=== PATIENT | male | born 1940 | race Two or more races ===

== ENCOUNTER 2021-12-04 16:58 | Inpatient (IN) | payer OTHER, MEDICAID ==
[~2021-12-04] VITALS: Ht 167.6 cm; Wt 75.9 kg
[~2021-12-04 16:58] MED LIST: ACE325RS; AMLO-489; CELE100C82; CLIN150C8; TRAM50TA2
[2021-12-04] MEDS ORDERED: methylPREDNISolone SOD SUCC 125 MG/2 ML VL IV ONE (18:00)
[2021-12-04] MEDS ORDERED: AZITHROMYCIN 500MG/ 250ML 250 ML IV ONE (18:00)
[2021-12-04 20:03] LABS: Basophils # (auto) 0 10 ^3/uL (0-0.2); Basophils % (auto) 0.1 % (0.0-2.0); Eosinophils # (auto) 0 10 ^3/uL (0-0.8); Hematocrit 39.3 % (41.0-53.0); Hemoglobin 12.8 g/dL (13.5-17.5); Lymphocytes # (auto) 0.8 10 ^3/uL (0.4-5.4); Lymphocytes % (auto) 8.5 % (10.0-50.0); Mean Corpuscular Hemoglobin 29.6 pg (28.0-32.0); Mean Corpuscular Hgb Conc. 32.5 g/dL (32.0-36.0); Mean Corpuscular Volume 91.1 fL (80.0-100.0); Monocytes # (auto) 0.5 10 ^3/uL (0-1.3); Monocytes % (auto) 5.1 % (0.0-12.0); Neutrophils # (auto) 7.6 10 ^3/uL (1.6-8.6); Neutrophils % (auto) 86.3 % (37.0-80.0); Red Blood Cells 4.31 10^6/uL (4.5-5.90); Red Cell Distribution Width 14.7 % (11.8-14.3); White Blood Cell 8.9 10^3/uL (4.4-10.8)
[2021-12-04 20:19] LABS: Albumin 2.5 g/dL (3.4-5.0); Calcium 8.1 mg/dL (8.5-10.1); Potassium 4.1 mmol/L (3.5-5.1)
[2021-12-04 20:23] LABS: Lactic Acid w/Reflex 5.8 mmol/L (0.4-2.0)
[2021-12-04 20:25] LABS: BUN/Creatinine Ratio 15.2; Bilirubin, Total 0.5 mg/dL (0.2-1.0)
[2021-12-04] MEDS ORDERED: REMDESIVIR PER PHARMACY 0 ML IV SCH ×2 (21:15→21:45)
[2021-12-04] MEDS ORDERED: TEMAZEPAM 15 MG CAP PO PRN (21:45)
[2021-12-04] MEDS ORDERED: FUROSEMIDE 40 MG/4 ML VIAL IV ONE (21:45)
[2021-12-04] MEDS ORDERED: ACETAMINOPHEN 500 MG TAB PO PRN (21:45)
[2021-12-04] MEDS ORDERED: MORPHINE SULFATE INJECTION 2 MG/ML SYRG IV PRN (21:45)
[2021-12-04] MEDS ORDERED: NITROGLYCERIN 0.4 MG SL TAB SL PRN (21:45)
[2021-12-04] MEDS ORDERED: cefTRIAXone 1GM/50ML D5W 50 ML IV ONE (21:45)
[2021-12-04] MEDS ORDERED: ONDANSETRON HCL 4 MG/2 ML VIAL IV PRN (21:45)
[2021-12-04] MEDS ORDERED: ENOXAPARIN SOD 60 MG/0.6 ML SYRINGE SC ONE (22:00)
[2021-12-04] MEDS: BUDESONIDE (INHALATION) 180 MCG IH IN SCH (22:41)
[2021-12-04] MEDS: ALBUTEROL SULF HFA 90MCG INH 200DOSE IN PRN (22:41)
[2021-12-05] MEDS: ATORVASTATIN 20 MG TAB PO SCH ×2 (00:40→22:05)
[2021-12-05 04:03] LABS: Urine WBC None Seen /hpf (0 - 3)
[2021-12-05 04:11] LABS: Urine Bacteria NONE SEEN /hpf (None Seen); Urine Blood Negative /uL (Negative); Urine Hyaline Cast FEW /lpf (0 - 2); Urine Specific Gravity 1.011 (1.001-1.035)
[2021-12-05] MEDS: BUDESONIDE (INHALATION) 180 MCG IH IN SCH ×2 (06:25→22:00)
[2021-12-05] MEDS: ALBUTEROL SULF HFA 90MCG INH 200DOSE IN PRN (06:26)
[2021-12-05] MEDS: DexAMETHasone SOD PHOS 10MG/1ML VIAL INJ IV SCH (09:37)
[2021-12-05] MEDS: cefTRIAXone 1GM/50ML D5W 50 ML IV SCH (09:37)
[2021-12-05] MEDS: AZITHROMYCIN 500MG/ 250ML 250 ML IV SCH (09:37)
[2021-12-05] MEDS: ZINC SULFATE 220mg CAP or TAB PO SCH (09:38)
[2021-12-05] MEDS: PANTOPRAZOLE 40 MG TAB PO SCH (09:44)
[2021-12-05] MEDS: CHOLECALCIFEROL (VITD3) 2,000 UNIT CAP/TAB PO SCH (09:44)
[2021-12-05] MEDS: ASCORBIC ACID 1,000 MG TAB PO SCH (09:44)
[2021-12-05] MEDS ORDERED: ASPirin 81 mg TAB PO SCH (10:00)
[2021-12-05] MEDS ORDERED: FUROSEMIDE 40 MG TAB PO SCH (10:00)
[2021-12-05] MEDS ORDERED: ENOXAPARIN SOD 40 MG/0.4 ML SYRINGE SC SCH (10:00)
[2021-12-05 10:03] LABS: Basophils # (auto) 0 10 ^3/uL (0-0.2); Basophils % (auto) 0.2 % (0.0-2.0); Eosinophils # (auto) 0 10 ^3/uL (0-0.8); Hematocrit 39.9 % (41.0-53.0); Hemoglobin 13.4 g/dL (13.5-17.5); Lymphocytes # (auto) 0.8 10 ^3/uL (0.4-5.4); Lymphocytes % (auto) 9.4 % (10.0-50.0); Mean Corpuscular Hgb Conc. 33.5 g/dL (32.0-36.0); Mean Corpuscular Volume 89.7 fL (80.0-100.0); Monocytes # (auto) 0.2 10 ^3/uL (0-1.3); Monocytes % (auto) 2.7 % (0.0-12.0); Neutrophils # (auto) 7.2 10 ^3/uL (1.6-8.6); Neutrophils % (auto) 87.7 % (37.0-80.0); Nucleated Red Blood Cells % 0.1 %; Red Blood Cells 4.45 10^6/uL (4.5-5.90); Red Cell Distribution Width 14.7 % (11.8-14.3); White Blood Cell 8.2 10^3/uL (4.4-10.8)
[2021-12-05 10:08] LABS: Albumin 2.5 g/dL (3.4-5.0); Calcium 8.7 mg/dL (8.5-10.1); Potassium 3.5 mmol/L (3.5-5.1)
[2021-12-05 10:11] LABS: BUN/Creatinine Ratio 22.1; Bilirubin, Total 0.5 mg/dL (0.2-1.0); Total Protein 7.3 g/dL (6.4-8.2)
[2021-12-05] MEDS ORDERED: REMDESIVIR 200 MG in NS 210ml LOADING DOSE ADULT IV ONE (20:00)
[2021-12-06] VITALS (7 sets, daily range): BP systolic 99–143; BP diastolic 61–79
[2021-12-06 06:39] LABS: Potassium 3.6 mmol/L (3.5-5.1)
[2021-12-06 06:44] LABS: Albumin 2.4 g/dL (3.4-5.0); BUN/Creatinine Ratio 26.9; Calcium 8.7 mg/dL (8.5-10.1)
[2021-12-06 06:46] LABS: Lactic Acid w/Reflex 2.8 mmol/L (0.4-2.0)
[2021-12-06 06:47] LABS: Bilirubin, Total 0.4 mg/dL (0.2-1.0); Total Protein 6.6 g/dL (6.4-8.2)
[2021-12-06] MEDS: cefTRIAXone 1GM/50ML D5W 50 ML IV SCH (09:26)
[2021-12-06] MEDS: ASPirin 81 mg TAB PO SCH (09:26)
[2021-12-06] MEDS: ZINC SULFATE 220mg CAP or TAB PO SCH (09:26)
[2021-12-06] MEDS: DexAMETHasone SOD PHOS 10MG/1ML VIAL INJ IV SCH (09:26)
[2021-12-06] MEDS: CHOLECALCIFEROL (VITD3) 2,000 UNIT CAP/TAB PO SCH (09:27)
[2021-12-06] MEDS: PANTOPRAZOLE 40 MG TAB PO SCH (09:27)
[2021-12-06] MEDS: ENOXAPARIN SOD 60 MG/0.6 ML SYRINGE SC SCH (09:27)
[2021-12-06] MEDS: ASCORBIC ACID 1,000 MG TAB PO SCH (09:27)
[2021-12-06] MEDS: REMDESIVIR PER PHARMACY 0 ML IV SCH (10:00)
[2021-12-06] MEDS ORDERED: FUROSEMIDE 20 MG/2 ML VIAL IV SCH (10:00)
[2021-12-06] MEDS: BUDESONIDE (INHALATION) 180 MCG IH IN SCH ×2 (10:25→19:05)
[2021-12-06] MEDS: AZITHROMYCIN 500MG/ 250ML 250 ML IV SCH (12:54)
[2021-12-06] MEDS ORDERED: RAMI2.5C33 PO (14:23)
[2021-12-06] MEDS ORDERED: OMEP20TA PO (14:23)
[2021-12-06] MEDS ORDERED: METH500T22 PO (14:23)
[2021-12-06] MEDS: REMDESIVIR 100mg 100 MG in SODIUM CHL 0.9% 230 ML IV SCH (15:45)
[2021-12-06] MEDS: ERGOCALCIFEROL 50,000 UNIT(1.25MG) CAP PO SCH (18:50)
[2021-12-06] MEDS: FUROSEMIDE 20 MG/2 ML VIAL IV SCH (18:55)
[2021-12-06] MEDS: ALBUTEROL SULF HFA 90MCG INH 200DOSE IN PRN (19:05)
[2021-12-06] MEDS: ATORVASTATIN 20 MG TAB PO SCH (22:02)
[2021-12-07 04:46] VITALS: BP 105/59
[2021-12-07] MEDS: ALBUTEROL SULF HFA 90MCG INH 200DOSE IN PRN ×2 (05:58→19:32)
[2021-12-07] MEDS: BUDESONIDE (INHALATION) 180 MCG IH IN SCH ×2 (05:58→19:31)
[2021-12-07] MEDS: FUROSEMIDE 20 MG/2 ML VIAL IV SCH ×2 (06:28→17:28)
[2021-12-07 07:54] LABS: Albumin 2.5 g/dL (3.4-5.0); Calcium 8.8 mg/dL (8.5-10.1)
[2021-12-07 07:57] LABS: Bilirubin, Total 0.6 mg/dL (0.2-1.0); Total Protein 6.9 g/dL (6.4-8.2)
[2021-12-07 09:00] VITALS: BP 107/70
[2021-12-07] MEDS: REMDESIVIR PER PHARMACY 0 ML IV SCH (10:00)
[2021-12-07] MEDS: Ensure HIGH Protein Vanilla 8oz Bottle PO SCH ×3 (10:17→17:29)
[2021-12-07] MEDS: cefTRIAXone 1GM/50ML D5W 50 ML IV SCH (10:18)
[2021-12-07] MEDS: DexAMETHasone SOD PHOS 10MG/1ML VIAL INJ IV SCH (10:18)
[2021-12-07] MEDS: ASPirin 81 mg TAB PO SCH (10:18)
[2021-12-07] MEDS: PANTOPRAZOLE 40 MG TAB PO SCH (10:19)
[2021-12-07] MEDS: ASCORBIC ACID 1,000 MG TAB PO SCH (10:19)
[2021-12-07] MEDS: ZINC SULFATE 220mg CAP or TAB PO SCH (10:19)
[2021-12-07] MEDS: ENOXAPARIN SOD 60 MG/0.6 ML SYRINGE SC SCH (10:19)
[2021-12-07] MEDS: CHOLECALCIFEROL (VITD3) 2,000 UNIT CAP/TAB PO SCH (10:19)
[2021-12-07 13:00] VITALS: BP 89/60
[2021-12-07] MEDS: AZITHROMYCIN 500MG/ 250ML 250 ML IV SCH (13:37)
[2021-12-07] MEDS: REMDESIVIR 100mg 100 MG in SODIUM CHL 0.9% 230 ML IV SCH (15:13)
[2021-12-07 17:00] VITALS: BP 109/56
[2021-12-07] MEDS: ERGOCALCIFEROL 50,000 UNIT(1.25MG) CAP PO SCH (17:12)
[2021-12-07 22:00] VITALS: BP 120/66
[2021-12-07] MEDS: ATORVASTATIN 20 MG TAB PO SCH (22:18)
[2021-12-08 05:00] VITALS: BP 107/56
[2021-12-08] MEDS: FUROSEMIDE 20 MG/2 ML VIAL IV SCH ×2 (05:48→18:00)
[2021-12-08] MEDS: Ensure HIGH Protein Vanilla 8oz Bottle PO SCH ×3 (08:21→18:00)
[2021-12-08 08:34] VITALS: BP 116/60
[2021-12-08] MEDS: cefTRIAXone 1GM/50ML D5W 50 ML IV SCH (09:30)
[2021-12-08] MEDS: DexAMETHasone SOD PHOS 10MG/1ML VIAL INJ IV SCH (10:00)
[2021-12-08] MEDS: BUDESONIDE (INHALATION) 180 MCG IH IN SCH ×2 (10:00→19:40)
[2021-12-08 10:02] LABS: Albumin 2.4 g/dL (3.4-5.0); Calcium 8.5 mg/dL (8.5-10.1)
[2021-12-08 10:12] LABS: Bilirubin, Total 0.6 mg/dL (0.2-1.0); CRP High Sensitivity 11.7 mg/dL (< 0.3); Total Protein 6.8 g/dL (6.4-8.2)
[2021-12-08] MEDS: ZINC SULFATE 220mg CAP or TAB PO SCH (10:30)
[2021-12-08] MEDS: ASPirin 81 mg TAB PO SCH (10:30)
[2021-12-08] MEDS: ASCORBIC ACID 1,000 MG TAB PO SCH (10:30)
[2021-12-08] MEDS: CHOLECALCIFEROL (VITD3) 2,000 UNIT CAP/TAB PO SCH (10:30)
[2021-12-08] MEDS: PANTOPRAZOLE 40 MG TAB PO SCH (10:30)
[2021-12-08] MEDS: ENOXAPARIN SOD 60 MG/0.6 ML SYRINGE SC SCH (10:30)
[2021-12-08] MEDS: ALBUTEROL SULF HFA 90MCG INH 200DOSE IN PRN ×2 (10:56→19:40)
[2021-12-08] MEDS: REMDESIVIR PER PHARMACY 0 ML IV SCH (11:15)
[2021-12-08 12:06] VITALS: BP 91/46
[2021-12-08] MEDS: AZITHROMYCIN 500MG/ 250ML 250 ML IV SCH (14:02)
[2021-12-08 14:37] VITALS: BP 102/55
[2021-12-08] MEDS: REMDESIVIR 100mg 100 MG in SODIUM CHL 0.9% 230 ML IV SCH (15:45)
[2021-12-08 17:00] VITALS: BP 102/50
[2021-12-08 18:17] LABS: Basophils # (auto) 0 10 ^3/uL (0-0.2); Basophils % (auto) 0.2 % (0.0-2.0); Eosinophils # (auto) 0 10 ^3/uL (0-0.8); Hematocrit 41.6 % (41.0-53.0); Hemoglobin 13.8 g/dL (13.5-17.5); Lymphocytes # (auto) 0.4 10 ^3/uL (0.4-5.4); Lymphocytes % (auto) 3.5 % (10.0-50.0); Mean Corpuscular Hemoglobin 30.2 pg (28.0-32.0); Mean Corpuscular Hgb Conc. 33.2 g/dL (32.0-36.0); Mean Corpuscular Volume 90.9 fL (80.0-100.0); Monocytes # (auto) 0.3 10 ^3/uL (0-1.3); Monocytes % (auto) 2.6 % (0.0-12.0); Neutrophils # (auto) 10.1 10 ^3/uL (1.6-8.6); Neutrophils % (auto) 93.7 % (37.0-80.0); Nucleated Red Blood Cells % 0.2 %; Red Blood Cells 4.58 10^6/uL (4.5-5.90); Red Cell Distribution Width 15.2 % (11.8-14.3); White Blood Cell 10.8 10^3/uL (4.4-10.8)
[2021-12-08 22:00] VITALS: BP 118/68
[2021-12-08] MEDS: ATORVASTATIN 20 MG TAB PO SCH (22:16)
[2021-12-09 05:00] VITALS: BP 98/43
[2021-12-09 05:57] LABS: Potassium 4.1 mmol/L (3.5-5.1)
[2021-12-09 06:04] LABS: Albumin 2.1 g/dL (3.4-5.0); Bilirubin, Total 0.6 mg/dL (0.2-1.0); Calcium 8.2 mg/dL (8.5-10.1); Total Protein 6.3 g/dL (6.4-8.2)
[2021-12-09] MEDS: FUROSEMIDE 20 MG/2 ML VIAL IV SCH ×2 (06:32→18:40)
[2021-12-09] MEDS: Ensure HIGH Protein Vanilla 8oz Bottle PO SCH ×3 (07:09→18:40)
[2021-12-09 09:00] VITALS: BP 106/56
[2021-12-09] MEDS: BUDESONIDE (INHALATION) 180 MCG IH IN SCH ×2 (09:53→19:26)
[2021-12-09] MEDS: ALBUTEROL SULF HFA 90MCG INH 200DOSE IN PRN ×2 (09:54→19:26)
[2021-12-09] MEDS: REMDESIVIR PER PHARMACY 0 ML IV SCH (10:00)
[2021-12-09] MEDS: cefTRIAXone 1GM/50ML D5W 50 ML IV SCH (10:16)
[2021-12-09] MEDS: ZINC SULFATE 220mg CAP or TAB PO SCH (10:17)
[2021-12-09] MEDS: ASCORBIC ACID 1,000 MG TAB PO SCH (10:17)
[2021-12-09] MEDS: ENOXAPARIN SOD 60 MG/0.6 ML SYRINGE SC SCH (10:17)
[2021-12-09] MEDS: DexAMETHasone SOD PHOS 10MG/1ML VIAL INJ IV SCH (10:18)
[2021-12-09] MEDS: AZITHROMYCIN 500MG/ 250ML 250 ML IV SCH (10:18)
[2021-12-09] MEDS: ASPirin 81 mg TAB PO SCH (10:18)
[2021-12-09] MEDS: CHOLECALCIFEROL (VITD3) 2,000 UNIT CAP/TAB PO SCH (10:18)
[2021-12-09] MEDS: PANTOPRAZOLE 40 MG TAB PO SCH (10:18)
[2021-12-09 13:00] VITALS: BP 99/45
[2021-12-09] MEDS: REMDESIVIR 100mg 100 MG in SODIUM CHL 0.9% 230 ML IV SCH (15:45)
[2021-12-09 17:00] VITALS: BP 99/63
[2021-12-09 18:30] VITALS: BP 106/55
[2021-12-09 22:00] VITALS: BP 98/50
[2021-12-09] MEDS: ATORVASTATIN 20 MG TAB PO SCH (22:00)
[2021-12-10 02:20] VITALS: BP 98/50
[2021-12-10 04:59] VITALS: BP 100/47
[2021-12-10] MEDS: FUROSEMIDE 20 MG/2 ML VIAL IV SCH ×2 (06:38→18:05)
[2021-12-10] MEDS: BUDESONIDE (INHALATION) 180 MCG IH IN SCH (07:31)
[2021-12-10] MEDS: Ensure HIGH Protein Vanilla 8oz Bottle PO SCH ×3 (08:16→18:05)
[2021-12-10] MEDS: cefTRIAXone 1GM/50ML D5W 50 ML IV SCH (08:17)
[2021-12-10 09:03] VITALS: BP 101/50
[2021-12-10] MEDS: DexAMETHasone SOD PHOS 10MG/1ML VIAL INJ IV SCH (10:47)
[2021-12-10] MEDS: ASPirin 81 mg TAB PO SCH (10:47)
[2021-12-10] MEDS: ZINC SULFATE 220mg CAP or TAB PO SCH (10:47)
[2021-12-10] MEDS: ENOXAPARIN SOD 60 MG/0.6 ML SYRINGE SC SCH (10:48)
[2021-12-10] MEDS: PANTOPRAZOLE 40 MG TAB PO SCH (10:48)
[2021-12-10] MEDS: CHOLECALCIFEROL (VITD3) 2,000 UNIT CAP/TAB PO SCH (10:48)
[2021-12-10] MEDS: ASCORBIC ACID 1,000 MG TAB PO SCH (10:48)
[2021-12-10 13:29] VITALS: BP 100/53
[2021-12-10 16:57] VITALS: BP 129/70
[2021-12-10] MEDS: BUDESONIDE (INHALATION) 0.5 MG/2 ML NEB NEB SCH (19:26)
[2021-12-10] MEDS: ALBUTEROL SULF 2.5 MG/0.5ML(0.5%) NEB SOLN NEB PRN (19:26)
[2021-12-10] MEDS ORDERED: AMINO ACID INFUSION IN D10W 1,000 ML IV NR ×2 (19:45→21:00)
[2021-12-10 21:39] VITALS: BP 127/55
[2021-12-10] MEDS: ATORVASTATIN 20 MG TAB PO SCH (22:00)
[2021-12-11] MEDS ORDERED: DEXTROSE (50%) 50ML SYRG IV SCH
[2021-12-11 04:48] VITALS: BP 112/65
[2021-12-11] MEDS: InsuLIN REG 1unit/0.01ml Soln (100units/ml) SC SCH ×4 (05:30→18:59)
[2021-12-11 05:46] LABS: Basophils # (auto) 0.1 10 ^3/uL (0-0.2); Basophils % (auto) 0.3 % (0.0-2.0); Eosinophils # (auto) 0.2 10 ^3/uL (0-0.8); Eosinophils % (auto) 1.1 % (0.0-7.0); Lymphocytes # (auto) 0.6 10 ^3/uL (0.4-5.4); Lymphocytes % (auto) 3.4 % (10.0-50.0); Mean Corpuscular Hemoglobin 29.5 pg (28.0-32.0); Mean Corpuscular Hgb Conc. 31.9 g/dL (32.0-36.0); Mean Corpuscular Volume 92.3 fL (80.0-100.0); Monocytes # (auto) 0.5 10 ^3/uL (0-1.3); Monocytes % (auto) 2.7 % (0.0-12.0); Neutrophils # (auto) 16.5 10 ^3/uL (1.6-8.6); Neutrophils % (auto) 92.5 % (37.0-80.0); Red Blood Cells 5.09 10^6/uL (4.5-5.90); Red Cell Distribution Width 15.1 % (11.8-14.3); White Blood Cell 17.8 10^3/uL (4.4-10.8)
[2021-12-11 06:02] LABS: Potassium 4.3 mmol/L (3.5-5.1)
[2021-12-11] MEDS: ACCU-CHEK COMFORT CURVE STRIP VI SCH ×4 (06:03→18:58)
[2021-12-11 06:10] LABS: Albumin 2.3 g/dL (3.4-5.0); BUN/Creatinine Ratio 49.7; Bilirubin, Total 0.9 mg/dL (0.2-1.0); Calcium 8.4 mg/dL (8.5-10.1); Magnesium 3.2 mg/dL (1.6-2.6); Phosphorus 5.3 mg/dL (2.5-4.90); Pre Albumin 10.5 mg/dL (20.0-40.0); Total Protein 6.4 g/dL (6.4-8.2)
[2021-12-11] MEDS: BUDESONIDE (INHALATION) 0.5 MG/2 ML NEB NEB SCH ×2 (06:28→17:50)
[2021-12-11] MEDS: ALBUTEROL SULF 2.5 MG/0.5ML(0.5%) NEB SOLN NEB PRN ×2 (06:28→17:50)
[2021-12-11] MEDS ORDERED: PPN PER PHARMACY 0 ML IV SCH (08:45)
[2021-12-11 08:59] LABS: INR 1.24 (0.9-1.15); Partial Thromboplastin Time 30.1 sec (23.6-33.0)
[2021-12-11 09:00] VITALS: BP 133/63
[2021-12-11] MEDS: ZINC SULFATE 220mg CAP or TAB PO SCH (09:16)
[2021-12-11] MEDS: PANTOPRAZOLE 40 MG TAB PO SCH (09:16)
[2021-12-11] MEDS: ASPirin 81 mg TAB PO SCH (09:16)
[2021-12-11] MEDS: cefTRIAXone 1GM/50ML D5W 50 ML IV SCH (09:16)
[2021-12-11] MEDS: DexAMETHasone SOD PHOS 10MG/1ML VIAL INJ IV SCH (09:16)
[2021-12-11] MEDS: CHOLECALCIFEROL (VITD3) 2,000 UNIT CAP/TAB PO SCH (09:17)
[2021-12-11] MEDS: ASCORBIC ACID 1,000 MG TAB PO SCH (09:17)
[2021-12-11] MEDS: ENOXAPARIN SOD 60 MG/0.6 ML SYRINGE SC SCH (09:17)
[2021-12-11 13:00] VITALS: BP 117/79
[2021-12-11] MEDS ORDERED: D5W/SOD CHLO 0.9% 1,000 ML IV ONE (16:00)
[2021-12-11 16:59] VITALS: BP 102/64
[2021-12-11] MEDS: PPN PER PHARMACY IV NR ×6 (19:00)
[2021-12-11] MEDS ORDERED: LIDOCAINE 1% (LOCAL ANESTH.) PF 5ml SDV ID ONE (19:00)
[2021-12-11 22:00] VITALS: BP 123/71
[2021-12-11] MEDS: ATORVASTATIN 20 MG TAB PO SCH (22:26)
[2021-12-11] MEDS: SODIUM CHLOR 0.9% PF (SALINE LOCK) 10ML VIAL/SYR IV SCH (22:26)
[2021-12-12] MEDS: ACCU-CHEK COMFORT CURVE STRIP VI SCH ×5 (00:11→23:28)
[2021-12-12] MEDS: InsuLIN REG 1unit/0.01ml Soln (100units/ml) SC SCH ×4 (00:16→18:20)
[2021-12-12 05:00] VITALS: BP 129/72
[2021-12-12 07:26] LABS: Albumin 2.3 g/dL (3.4-5.0); Calcium 8.6 mg/dL (8.5-10.1); Potassium 4.9 mmol/L (3.5-5.1)
[2021-12-12 07:29] LABS: BUN/Creatinine Ratio 57.9; Bilirubin, Total 1.1 mg/dL (0.2-1.0); Phosphorus 4.4 mg/dL (2.5-4.90); Total Protein 7.3 g/dL (6.4-8.2)
[2021-12-12 07:55] LABS: Magnesium 5.3 mg/dL (1.6-2.6)
[2021-12-12 08:34] VITALS: BP 123/55
[2021-12-12] MEDS: DexAMETHasone SOD PHOS 10MG/1ML VIAL INJ IV SCH (09:31)
[2021-12-12] MEDS: cefTRIAXone 1GM/50ML D5W 50 ML IV SCH (09:31)
[2021-12-12] MEDS: SODIUM CHLOR 0.9% PF (SALINE LOCK) 10ML VIAL/SYR IV SCH ×2 (09:32→22:35)
[2021-12-12] MEDS: PANTOPRAZOLE 40 MG TAB PO SCH (09:32)
[2021-12-12] MEDS: ZINC SULFATE 220mg CAP or TAB PO SCH (09:32)
[2021-12-12] MEDS: ASPirin 81 mg TAB PO SCH (09:32)
[2021-12-12] MEDS: ASCORBIC ACID 1,000 MG TAB PO SCH (09:34)
[2021-12-12] MEDS: CHOLECALCIFEROL (VITD3) 2,000 UNIT CAP/TAB PO SCH (09:34)
[2021-12-12] MEDS: ENOXAPARIN SOD 60 MG/0.6 ML SYRINGE SC SCH (09:34)
[2021-12-12] MEDS: BUDESONIDE (INHALATION) 0.5 MG/2 ML NEB NEB SCH ×2 (10:24→20:26)
[2021-12-12] MEDS: ALBUTEROL SULF 2.5 MG/0.5ML(0.5%) NEB SOLN NEB PRN ×2 (10:24→20:26)
[2021-12-12] MEDS ORDERED: TPN PER PHARMACY 0 ML IV SCH (10:30)
[2021-12-12] MEDS ORDERED: D5W/SOD CHLO 0.9% 1,000 ML IV ONE (12:30)
[2021-12-12 13:00] VITALS: BP 122/61
[2021-12-12] MEDS ORDERED: D5W 5% 1,000 ML IV ONE (13:45)
[2021-12-12] MEDS: MORPHINE SULFATE INJECTION 2 MG/ML SYRG IV PRN (14:17)
[2021-12-12 14:30] LABS: Urine Bacteria NONE SEEN /hpf (None Seen); Urine Blood Negative /uL (Negative); Urine Specific Gravity 1.019 (1.001-1.035); Urine WBC 1 /hpf (0 - 3)
[2021-12-12 15:01] LABS: Creatinine, Urine 78 mg/dL (30.0-125.0); Sodium Urine 26 mmol/L (40-220)
[2021-12-12 16:34] VITALS: BP 109/52
[2021-12-12 18:45] LABS: Calcium 8.8 mg/dL (8.5-10.1); Potassium 4.7 mmol/L (3.5-5.1)
[2021-12-12] MEDS: PPN PER PHARMACY IV NR ×6 (19:51)
[2021-12-12] MEDS: TPN PER PHARMACY IV NR ×5 (20:15)
[2021-12-12 22:08] VITALS: BP 135/78
[2021-12-12] MEDS: ATORVASTATIN 20 MG TAB PO SCH (22:09)
[2021-12-13] VITALS (7 sets, daily range): BP systolic 81–136; BP diastolic 42–76
[2021-12-13] MEDS: InsuLIN REG 1unit/0.01ml Soln (100units/ml) SC SCH ×5 (00:05→22:54)
[2021-12-13] MEDS: MORPHINE SULFATE INJECTION 2 MG/ML SYRG IV PRN (03:45)
[2021-12-13] MEDS: ACCU-CHEK COMFORT CURVE STRIP VI SCH ×4 (05:52→22:54)
[2021-12-13 06:42] LABS: Basophils # (auto) 0 10 ^3/uL (0-0.2); Basophils % (auto) 0.1 % (0.0-2.0); Eosinophils # (auto) 0 10 ^3/uL (0-0.8); Hematocrit 49.5 % (41.0-53.0); Lymphocytes # (auto) 0.5 10 ^3/uL (0.4-5.4); Lymphocytes % (auto) 2.8 % (10.0-50.0); Mean Corpuscular Hemoglobin 29.5 pg (28.0-32.0); Mean Corpuscular Hgb Conc. 32.3 g/dL (32.0-36.0); Mean Corpuscular Volume 91.4 fL (80.0-100.0); Monocytes # (auto) 0.4 10 ^3/uL (0-1.3); Neutrophils # (auto) 17.5 10 ^3/uL (1.6-8.6); Neutrophils % (auto) 95.1 % (37.0-80.0); Nucleated Red Blood Cells % 0.1 %; Red Blood Cells 5.42 10^6/uL (4.5-5.90); White Blood Cell 18.4 10^3/uL (4.4-10.8)
[2021-12-13] MEDS: D5W 5% 1,000 ML IV SCH ×3 (06:55→17:10)
[2021-12-13 07:05] LABS: Albumin 2.3 g/dL (3.4-5.0); Calcium 8.7 mg/dL (8.5-10.1); Potassium 4.2 mmol/L (3.5-5.1)
[2021-12-13 07:08] LABS: BUN/Creatinine Ratio 52.3; Bilirubin, Total 0.9 mg/dL (0.2-1.0); Phosphorus 3.4 mg/dL (2.5-4.90)
[2021-12-13] MEDS: cefTRIAXone 1GM/50ML D5W 50 ML IV SCH (09:05)
[2021-12-13] MEDS: ASPirin 81 mg TAB PO SCH (09:06)
[2021-12-13] MEDS: SODIUM CHLOR 0.9% PF (SALINE LOCK) 10ML VIAL/SYR IV SCH ×2 (09:06→20:22)
[2021-12-13] MEDS: DexAMETHasone SOD PHOS 10MG/1ML VIAL INJ IV SCH (09:06)
[2021-12-13] MEDS: PANTOPRAZOLE 40 MG TAB PO SCH (09:06)
[2021-12-13] MEDS: CHOLECALCIFEROL (VITD3) 2,000 UNIT CAP/TAB PO SCH (09:07)
[2021-12-13] MEDS: ENOXAPARIN SOD 60 MG/0.6 ML SYRINGE SC SCH ×2 (09:07→20:23)
[2021-12-13] MEDS: BUDESONIDE (INHALATION) 0.5 MG/2 ML NEB NEB SCH ×2 (10:00→21:58)
[2021-12-13] MEDS ORDERED: ROCURONIUM 10MG/ML 10ML VIAL IV ONE ×2 (14:07→14:43)
[2021-12-13] MEDS ORDERED: ETOMIDATE (2MG/ML) 20ML VIAL IV ONE ×2 (14:07→14:43)
[2021-12-13] MEDS ORDERED: SUCCINYLCHOLINE CHLORIDE 20 MG/ML 10ML VIAL IV ONE ×2 (14:08→14:42)
[2021-12-13] MEDS: MIDAZOLAM HCL 5 MG/ML-1ML VIAL ONE ×2 (14:59→15:39)
[2021-12-13] MEDS ORDERED: PROPOFOL 100 ML IV ONE (15:30)
[2021-12-13] MEDS ORDERED: fentaNYL Drip 2500mCg/250mlNS 250 ML IV ONE (15:31)
[2021-12-13] MEDS ORDERED: MIDAZOLAM DRIP 50 mg/50mL 50 ML IV ONE (15:32)
[2021-12-13] MEDS: ERGOCALCIFEROL 50,000 UNIT(1.25MG) CAP PO SCH (16:00)
[2021-12-13] MEDS ORDERED: NOREPINEPHRINE 8 MG/250ML KIT 250 ML IV ONE (16:03)
[2021-12-13] MEDS: PROPOFOL 100 ML IV SCH (17:00)
[2021-12-13] MEDS: TPN PER PHARMACY IV NR ×5 (19:51)
[2021-12-13] MEDS ORDERED: TPN PER PHARMACY IV NR ×7 (20:00)
[2021-12-13] MEDS: ATORVASTATIN 20 MG TAB PO SCH ×3 (20:23→20:53)
[2021-12-13] MEDS: ALBUTEROL SULF 2.5 MG/0.5ML(0.5%) NEB SOLN NEB PRN (21:59)
[2021-12-14] VITALS (46 sets, daily range): BP systolic 56–154; BP diastolic 21–73
[2021-12-14] MEDS: D5W 5% 1,000 ML IV SCH ×2 (01:00→08:20)
[2021-12-14] MEDS: MIDAZOLAM DRIP 50 mg/50mL 50 ML IV SCH ×2 (01:01→15:49)
[2021-12-14] MEDS: NOREPINEPHRINE 8 MG/250ML KIT 250 ML IV SCH ×3 (01:02→23:13)
[2021-12-14] MEDS: fentaNYL Drip 2500mCg/250mlNS 250 ML IV SCH ×3 (01:14→22:28)
[2021-12-14 04:11] LABS: Eosinophils # (auto) 0 10 ^3/uL (0-0.8); Hemoglobin 14.3 g/dL (13.5-17.5); Lymphocytes # (auto) 0.4 10 ^3/uL (0.4-5.4); White Blood Cell 19.8 10^3/uL (4.4-10.8)
[2021-12-14 04:14] LABS: Basophils # (auto) 0.1 10 ^3/uL (0-0.2); Basophils % (auto) 0.6 % (0.0-2.0); Hematocrit 45.8 % (41.0-53.0); Mean Corpuscular Hemoglobin 29.8 pg (28.0-32.0); Mean Corpuscular Hgb Conc. 31.2 g/dL (32.0-36.0); Mean Corpuscular Volume 95.5 fL (80.0-100.0); Monocytes # (auto) 0.7 10 ^3/uL (0-1.3); Monocytes % (auto) 3.7 % (0.0-12.0); Neutrophils # (auto) 18.5 10 ^3/uL (1.6-8.6); Neutrophils % (auto) 93.7 % (37.0-80.0); Nucleated Red Blood Cells % 0.2 %; Red Blood Cells 4.79 10^6/uL (4.5-5.90); Red Cell Distribution Width 16.1 % (11.8-14.3)
[2021-12-14] MEDS: ACCU-CHEK COMFORT CURVE STRIP VI SCH ×4 (04:55→23:39)
[2021-12-14] MEDS: InsuLIN REG 1unit/0.01ml Soln (100units/ml) SC SCH ×4 (05:13→23:40)
[2021-12-14] MEDS: cefTRIAXone 1GM/50ML D5W 50 ML IV SCH (09:15)
[2021-12-14] MEDS ORDERED: DEXTROSE (50%) 50ML SYRG IV PRN (09:30)
[2021-12-14] MEDS: CHOLECALCIFEROL (VITD3) 2,000 UNIT CAP/TAB PO SCH (10:00)
[2021-12-14] MEDS: ASPirin 81 mg TAB PO SCH (10:00)
[2021-12-14] MEDS: SODIUM CHLOR 0.9% PF (SALINE LOCK) 10ML VIAL/SYR IV SCH ×2 (10:15→20:42)
[2021-12-14] MEDS: DexAMETHasone SOD PHOS 10MG/1ML VIAL INJ IV SCH (10:15)
[2021-12-14] MEDS: ENOXAPARIN SOD 60 MG/0.6 ML SYRINGE SC SCH (10:15)
[2021-12-14] MEDS ORDERED: PANTOPRAZOLE 40 MG/10 ML VIAL INJ IV ONE (10:30)
[2021-12-14] MEDS ORDERED: InsuLIN REG 1unit/0.01ml Soln (100units/ml) SC SCH (12:00)
[2021-12-14] MEDS ORDERED: SODIUM CHLORIDE 0.9% 1,000 ML IV SCH (13:00)
[2021-12-14 14:13] LABS: Albumin 1.7 g/dL (3.4-5.0); Calcium 6.8 mg/dL (8.5-10.1)
[2021-12-14 14:18] LABS: BUN/Creatinine Ratio 25.3; Bilirubin, Total 0.4 mg/dL (0.2-1.0); Phosphorus 6.8 mg/dL (2.5-4.90); Total Protein 5.9 g/dL (6.4-8.2)
[2021-12-14 14:21] LABS: Potassium 5.6 mmol/L (3.5-5.1)
[2021-12-14] MEDS: BUDESONIDE (INHALATION) 0.5 MG/2 ML NEB NEB SCH ×2 (15:32→21:42)
[2021-12-14] MEDS: ALBUTEROL SULF 2.5 MG/0.5ML(0.5%) NEB SOLN NEB PRN ×2 (15:32→21:43)
[2021-12-14] MEDS: PROPOFOL 100 ML IV SCH (17:00)
[2021-12-14] MEDS ORDERED: SODIUM ZIRCONIUM CYCL 10 GM PAK PO ONE (17:15)
[2021-12-14] MEDS: MICAFUNGIN SODIUM 100 MG in SODIUM CHL 0.9% 100 ML IV SCH (17:20)
[2021-12-14] MEDS ORDERED: FUROSEMIDE 40 MG/4 ML VIAL IV ONE (17:45)
[2021-12-14] MEDS ORDERED: InsuLIN REG 1unit/0.01ml Soln (100units/ml) IV ONE (17:45)
[2021-12-14] MEDS ORDERED: ALBUTEROL SULF 2.5 MG/0.5ML(0.5%) NEB SOLN NEB ONE (17:45)
[2021-12-14] MEDS: CEFEPIME 1 GM in SODIUM CHL 0.9% 50 ML IV SCH (18:30)
[2021-12-14] MEDS: SODIUM BICARBONATE 50ML VIAL 150 ML in D5W 5% 1,000 ML IV SCH (18:30)
[2021-12-14] MEDS: TPN PER PHARMACY IV NR ×4 (19:48)
[2021-12-14] MEDS: SODIUM ZIRCONIUM CYCL 10 GM PAK PO SCH (20:42)
[2021-12-14] MEDS: LINEZOLID 600MG/300ML 300 ML IV SCH (22:29)
[2021-12-15] VITALS (100 sets, daily range): BP systolic 83–167; BP diastolic 48–69
[2021-12-15] MEDS: SODIUM BICARBONATE 50ML VIAL 150 ML in D5W 5% 1,000 ML IV SCH (04:14)
[2021-12-15 05:35] LABS: Potassium 5.4 mmol/L (3.5-5.1)
[2021-12-15 05:38] LABS: Albumin 1.4 g/dL (3.4-5.0); BUN/Creatinine Ratio 25.8; Calcium 6.9 mg/dL (8.5-10.1); Magnesium 2.2 mg/dL (1.6-2.6)
[2021-12-15 05:41] LABS: Bilirubin, Total 0.4 mg/dL (0.2-1.0); Phosphorus 7.6 mg/dL (2.5-4.90); Total Protein 5.5 g/dL (6.4-8.2)
[2021-12-15] MEDS: PROPOFOL 100 ML IV SCH (06:00)
[2021-12-15] MEDS: InsuLIN REG 1unit/0.01ml Soln (100units/ml) SC SCH ×3 (06:35→18:00)
[2021-12-15] MEDS: SODIUM ZIRCONIUM CYCL 10 GM PAK PO SCH ×3 (06:35→21:47)
[2021-12-15] MEDS: ACCU-CHEK COMFORT CURVE STRIP VI SCH ×3 (06:36→18:00)
[2021-12-15] MEDS: BUDESONIDE (INHALATION) 0.5 MG/2 ML NEB NEB SCH ×2 (07:33→18:39)
[2021-12-15] MEDS: ALBUTEROL SULF 2.5 MG/0.5ML(0.5%) NEB SOLN NEB PRN ×2 (07:33→18:39)
[2021-12-15] MEDS ORDERED: FUROSEMIDE 40 MG/4 ML VIAL IV ONE (09:30)
[2021-12-15] MEDS: PANTOPRAZOLE 40 MG/10 ML VIAL INJ IV SCH (10:09)
[2021-12-15] MEDS: SODIUM CHLOR 0.9% PF (SALINE LOCK) 10ML VIAL/SYR IV SCH ×2 (10:09→21:47)
[2021-12-15] MEDS: LINEZOLID 600MG/300ML 300 ML IV SCH ×2 (10:09→22:45)
[2021-12-15] MEDS: ENOXAPARIN SOD 60 MG/0.6 ML SYRINGE SC SCH (10:10)
[2021-12-15] MEDS: INSULIN LANTUS (GLARGINE) 1 /0.01ml (100units/ml) SC SCH (11:00)
[2021-12-15] MEDS ORDERED: InsuLIN REG 1unit/0.01ml Soln (100units/ml) IV ONE (13:30)
[2021-12-15] MEDS: SODIUM CHLORIDE 0.9% 1,000 ML IV SCH (13:57)
[2021-12-15 14:48] LABS: BUN/Creatinine Ratio 24.2
[2021-12-15 15:41] LABS: Basophils # (auto) 0 10 ^3/uL (0-0.2); Basophils % (auto) 0.2 % (0.0-2.0); Eosinophils # (auto) 0 10 ^3/uL (0-0.8); Eosinophils % (auto) 0.1 % (0.0-7.0); Lymphocytes # (auto) 0.5 10 ^3/uL (0.4-5.4); Monocytes # (auto) 0.5 10 ^3/uL (0-1.3); Nucleated Red Blood Cells % 0.1 %
[2021-12-15 15:43] LABS: Hematocrit 39.4 % (41.0-53.0); Hemoglobin 11.3 g/dL (13.5-17.5); Lymphocytes % (auto) 2.8 % (10.0-50.0); Mean Corpuscular Hemoglobin 29.6 pg (28.0-32.0); Mean Corpuscular Hgb Conc. 28.7 g/dL (32.0-36.0); Mean Corpuscular Volume 103.1 fL (80.0-100.0); Monocytes % (auto) 3.3 % (0.0-12.0); Neutrophils # (auto) 15.2 10 ^3/uL (1.6-8.6); Neutrophils % (auto) 93.6 % (37.0-80.0); Red Blood Cells 3.82 10^6/uL (4.5-5.90); Red Cell Distribution Width 16.8 % (11.8-14.3); White Blood Cell 16.3 10^3/uL (4.4-10.8)
[2021-12-15 16:22] LABS: BUN/Creatinine Ratio 24.8; Calcium 6.9 mg/dL (8.5-10.1); Potassium 4.4 mmol/L (3.5-5.1)
[2021-12-15] MEDS: MIDAZOLAM DRIP 50 mg/50mL 50 ML IV SCH (17:30)
[2021-12-15] MEDS: MICAFUNGIN SODIUM 100 MG in SODIUM CHL 0.9% 100 ML IV SCH (17:46)
[2021-12-15] MEDS: FUROSEMIDE 40 MG/4 ML VIAL IV SCH (18:00)
[2021-12-15] MEDS: CALCIUM ACETATE 667 MG CAP PO SCH (18:05)
[2021-12-15] MEDS: CEFEPIME 1 GM in SODIUM CHL 0.9% 50 ML IV SCH (18:25)
[2021-12-15] MEDS: TPN PER PHARMACY IV NR ×4 (19:58)
[2021-12-15] MEDS ORDERED: TPN PER PHARMACY IV NR ×6 (20:00)
[2021-12-15] MEDS: NOREPINEPHRINE 8 MG/250ML KIT 250 ML IV SCH (22:26)
[2021-12-16] VITALS (97 sets, daily range): BP systolic 75–140; BP diastolic 35–64
[2021-12-16] MEDS: ACCU-CHEK COMFORT CURVE STRIP VI SCH ×4 (00:49→18:00)
[2021-12-16] MEDS: InsuLIN REG 1unit/0.01ml Soln (100units/ml) SC SCH ×4 (00:49→18:00)
[2021-12-16] MEDS: SODIUM CHLORIDE 0.9% 1,000 ML IV SCH ×2 (03:19→11:45)
[2021-12-16] MEDS: PROPOFOL 100 ML IV SCH ×2 (03:20→06:33)
[2021-12-16] MEDS: MIDAZOLAM DRIP 50 mg/50mL 50 ML IV SCH ×2 (03:21→06:34)
[2021-12-16 04:03] LABS: Basophils # (auto) 0 10 ^3/uL (0-0.2); Basophils % (auto) 0.1 % (0.0-2.0); Eosinophils # (auto) 0.1 10 ^3/uL (0-0.8); Eosinophils % (auto) 0.5 % (0.0-7.0); Hematocrit 37.9 % (41.0-53.0); Lymphocytes # (auto) 0.5 10 ^3/uL (0.4-5.4); Lymphocytes % (auto) 3.2 % (10.0-50.0); Mean Corpuscular Hemoglobin 29.1 pg (28.0-32.0); Mean Corpuscular Hgb Conc. 31.6 g/dL (32.0-36.0); Mean Corpuscular Volume 92.1 fL (80.0-100.0); Monocytes # (auto) 0.4 10 ^3/uL (0-1.3); Monocytes % (auto) 2.4 % (0.0-12.0); Neutrophils # (auto) 15.7 10 ^3/uL (1.6-8.6); Neutrophils % (auto) 93.8 % (37.0-80.0); Red Blood Cells 4.11 10^6/uL (4.5-5.90); Red Cell Distribution Width 15.2 % (11.8-14.3); White Blood Cell 16.8 10^3/uL (4.4-10.8)
[2021-12-16 04:22] LABS: Albumin 1.4 g/dL (3.4-5.0); BUN/Creatinine Ratio 26.7; Calcium 7.2 mg/dL (8.5-10.1); Magnesium 1.8 mg/dL (1.6-2.6); Potassium 4.1 mmol/L (3.5-5.1)
[2021-12-16 04:24] LABS: Bilirubin, Total 0.4 mg/dL (0.2-1.0); Phosphorus 5.6 mg/dL (2.5-4.90); Total Protein 5.2 g/dL (6.4-8.2)
[2021-12-16] MEDS: SODIUM ZIRCONIUM CYCL 10 GM PAK PO SCH ×2 (06:00→13:38)
[2021-12-16] MEDS: FUROSEMIDE 40 MG/4 ML VIAL IV SCH (06:32)
[2021-12-16] MEDS: CALCIUM ACETATE 667 MG CAP PO SCH ×3 (08:00→18:20)
[2021-12-16] MEDS: ALBUTEROL SULF 2.5 MG/0.5ML(0.5%) NEB SOLN NEB PRN ×2 (09:57→22:32)
[2021-12-16] MEDS: BUDESONIDE (INHALATION) 0.5 MG/2 ML NEB NEB SCH ×2 (09:57→22:32)
[2021-12-16] MEDS: ENOXAPARIN SOD 60 MG/0.6 ML SYRINGE SC SCH (10:00)
[2021-12-16] MEDS: SODIUM CHLOR 0.9% PF (SALINE LOCK) 10ML VIAL/SYR IV SCH ×2 (10:00→21:36)
[2021-12-16] MEDS: PANTOPRAZOLE 40 MG/10 ML VIAL INJ IV SCH (10:00)
[2021-12-16] MEDS: INSULIN LANTUS (GLARGINE) 1 /0.01ml (100units/ml) SC SCH (10:00)
[2021-12-16] MEDS: LINEZOLID 600MG/300ML 300 ML IV SCH ×2 (11:00→23:54)
[2021-12-16] MEDS: DOPamine 1600MCG/ML D5W 250 ML IV SCH ×2 (11:45→21:25)
[2021-12-16] MEDS ORDERED: Glucerna 1.2 Cal 1Liter BOTTLE GT SCH (12:30)
[2021-12-16] MEDS ORDERED: PHENYLEPHRINE IV 250 ML IV ONE (12:56)
[2021-12-16] MEDS: PHENYLEPHRINE IV 250 ML IV SCH ×4 (13:00→23:14)
[2021-12-16 14:39] LABS: Urine Bacteria MOD /hpf (None Seen); Urine Blood 3+ /uL (Negative); Urine WBC 17 /hpf (0 - 3)
[2021-12-16] MEDS: fentaNYL Drip 2500mCg/250mlNS 250 ML IV SCH (17:00)
[2021-12-16] MEDS: MICAFUNGIN SODIUM 100 MG in SODIUM CHL 0.9% 100 ML IV SCH (18:00)
[2021-12-16] MEDS: CEFEPIME 1 GM in SODIUM CHL 0.9% 50 ML IV SCH (19:40)
[2021-12-16] MEDS ORDERED: SODIUM CHLORIDE 0.9% 1,000 ML IV SCH (20:00)
[2021-12-16] MEDS ORDERED: TPN PER PHARMACY IV NR ×7 (20:00)
[2021-12-16] MEDS ORDERED: VASOPRESSIN 20 UNIT/ML ONE (22:24)
[2021-12-16] MEDS: VASOPRESSIN 50 UNITS in D5W 5% 247.5 ML IV SCH (22:30)
[2021-12-17] VITALS (100 sets, daily range): BP systolic 85–138; BP diastolic 29–64
[2021-12-17] MEDS: ACCU-CHEK COMFORT CURVE STRIP VI SCH ×4 (00:40→16:53)
[2021-12-17] MEDS: PHENYLEPHRINE IV 250 ML IV SCH (00:41)
[2021-12-17] MEDS: SODIUM CHLORIDE 0.9% 1,000 ML IV SCH ×2 (00:41→14:25)
[2021-12-17] MEDS ORDERED: PHENYLEPHRINE HCL 10 MG/ML VL ONE (02:36)
[2021-12-17] MEDS: PHENYLEPHRINE INJ 80 MG in SODIUM CHL 0.9% 242 ML IV SCH (03:03)
[2021-12-17 04:04] LABS: Hemoglobin 11.2 g/dL (13.5-17.5); White Blood Cell 15.2 10^3/uL (4.4-10.8)
[2021-12-17 04:07] LABS: Hematocrit 36.6 % (41.0-53.0); Mean Corpuscular Hemoglobin 29.6 pg (28.0-32.0); Mean Corpuscular Hgb Conc. 30.6 g/dL (32.0-36.0); Mean Corpuscular Volume 96.9 fL (80.0-100.0); Red Blood Cells 3.77 10^6/uL (4.5-5.90); Red Cell Distribution Width 16.3 % (11.8-14.3)
[2021-12-17 04:12] LABS: Basophils % (manual) 0 (0.0-2.0); Blast Cells 0; Eosinophils % (manual) 0 (0-7); Metamyelocytes % 0; Myelocytes % 0; Promyelocytes % 0; Reactive Lymphocytes 0
[2021-12-17 04:20] LABS: Albumin 1.2 g/dL (3.4-5.0); Calcium 6.8 mg/dL (8.5-10.1); Magnesium 2.4 mg/dL (1.6-2.6); Potassium 3.8 mmol/L (3.5-5.1)
[2021-12-17 04:26] LABS: BUN/Creatinine Ratio 24.5; Bilirubin, Total 0.4 mg/dL (0.2-1.0); Pre Albumin 7.7 mg/dL (20.0-40.0)
[2021-12-17 04:28] LABS: Band Neutrophils % (manual) 17; Lymphocytes % (manual) 5 (10.0-50.0); Monocytes % (manual) 1 (0-12)
[2021-12-17] MEDS: MIDAZOLAM DRIP 50 mg/50mL 50 ML IV SCH (06:06)
[2021-12-17] MEDS: InsuLIN REG 1unit/0.01ml Soln (100units/ml) SC SCH ×4 (06:38→16:48)
[2021-12-17] MEDS: FUROSEMIDE INJECTION 100 MG in SODIUM CHL 0.9% 100 ML IV SCH ×2 (09:30→19:30)
[2021-12-17] MEDS: INSULIN LANTUS (GLARGINE) 1 /0.01ml (100units/ml) SC SCH (10:00)
[2021-12-17] MEDS: SODIUM CHLOR 0.9% PF (SALINE LOCK) 10ML VIAL/SYR IV SCH ×2 (10:18→21:30)
[2021-12-17] MEDS: CALCIUM ACETATE 667 MG CAP PO SCH ×3 (10:18→18:00)
[2021-12-17] MEDS: PANTOPRAZOLE 40 MG/10 ML VIAL INJ IV SCH (10:18)
[2021-12-17] MEDS: LINEZOLID 600MG/300ML 300 ML IV SCH ×2 (10:18→22:00)
[2021-12-17] MEDS: ENOXAPARIN SOD 60 MG/0.6 ML SYRINGE SC SCH (10:18)
[2021-12-17] MEDS: BUDESONIDE (INHALATION) 0.5 MG/2 ML NEB NEB SCH ×2 (12:16→18:20)
[2021-12-17] MEDS: ALBUTEROL SULF 2.5 MG/0.5ML(0.5%) NEB SOLN NEB PRN ×2 (12:16→18:20)
[2021-12-17] MEDS ORDERED: SODIUM BICARBONATE 8.4 % INJ 50ML VIAL IV ONE (14:45)
[2021-12-17] MEDS: MICAFUNGIN SODIUM 100 MG in SODIUM CHL 0.9% 100 ML IV SCH (17:00)
[2021-12-17] MEDS: fentaNYL Drip 2500mCg/250mlNS 250 ML IV SCH (17:00)
[2021-12-17] MEDS: NOREPINEPHRINE 8 MG/250ML KIT 250 ML IV SCH (17:00)
[2021-12-17] MEDS: PROPOFOL 100 ML IV SCH (17:00)
[2021-12-17] MEDS: CEFEPIME 1 GM in SODIUM CHL 0.9% 50 ML IV SCH (18:00)
[2021-12-17] MEDS ORDERED: TPN PER PHARMACY IV NR ×6 (20:00)
[2021-12-17] MEDS: VASOPRESSIN 50 UNITS in D5W 5% 247.5 ML IV SCH ×2 (21:30→22:00)
[2021-12-18] VITALS (96 sets, daily range): BP systolic 87–166; BP diastolic 32–76
[2021-12-18] MEDS: MIDAZOLAM DRIP 50 mg/50mL 50 ML IV SCH (00:30)
[2021-12-18] MEDS: PHENYLEPHRINE INJ 80 MG in SODIUM CHL 0.9% 242 ML IV SCH (02:30)
[2021-12-18 03:27] LABS: Basophils # (auto) 0 10 ^3/uL (0-0.2); Basophils % (auto) 0.1 % (0.0-2.0); Eosinophils # (auto) 0 10 ^3/uL (0-0.8); Eosinophils % (auto) 0.2 % (0.0-7.0); Hematocrit 31.3 % (41.0-53.0); Hemoglobin 9.6 g/dL (13.5-17.5); Lymphocytes # (auto) 0.4 10 ^3/uL (0.4-5.4); Mean Corpuscular Hemoglobin 29.6 pg (28.0-32.0); Mean Corpuscular Hgb Conc. 30.7 g/dL (32.0-36.0); Mean Corpuscular Volume 96.4 fL (80.0-100.0); Monocytes # (auto) 0.3 10 ^3/uL (0-1.3); Monocytes % (auto) 2.3 % (0.0-12.0); Neutrophils # (auto) 12.7 10 ^3/uL (1.6-8.6); Neutrophils % (auto) 94.4 % (37.0-80.0); Nucleated Red Blood Cells % 0.2 %; Red Blood Cells 3.25 10^6/uL (4.5-5.90); Red Cell Distribution Width 15.8 % (11.8-14.3); White Blood Cell 13.5 10^3/uL (4.4-10.8)
[2021-12-18 03:45] LABS: Magnesium 1.8 mg/dL (1.6-2.6); Potassium 4.1 mmol/L (3.5-5.1)
[2021-12-18] MEDS: SODIUM CHLORIDE 0.9% 1,000 ML IV SCH ×2 (03:45→05:57)
[2021-12-18 03:48] LABS: Bilirubin, Total 0.7 mg/dL (0.2-1.0); Phosphorus 7.1 mg/dL (2.5-4.90); Total Protein 4.7 g/dL (6.4-8.2)
[2021-12-18 03:56] LABS: BUN/Creatinine Ratio 24.4
[2021-12-18] MEDS: FUROSEMIDE INJECTION 100 MG in SODIUM CHL 0.9% 100 ML IV SCH ×2 (05:30→15:30)
[2021-12-18] MEDS: InsuLIN REG 1unit/0.01ml Soln (100units/ml) SC SCH ×4 (05:58→18:00)
[2021-12-18] MEDS: ACCU-CHEK COMFORT CURVE STRIP VI SCH ×4 (05:58→18:00)
[2021-12-18] MEDS: fentaNYL Drip 2500mCg/250mlNS 250 ML IV SCH ×2 (06:04→13:19)
[2021-12-18] MEDS: BUDESONIDE (INHALATION) 0.5 MG/2 ML NEB NEB SCH ×2 (06:24→19:43)
[2021-12-18] MEDS: ALBUTEROL SULF 2.5 MG/0.5ML(0.5%) NEB SOLN NEB PRN ×2 (06:24→19:43)
[2021-12-18] MEDS: CALCIUM ACETATE 667 MG CAP PO SCH ×3 (08:00→18:00)
[2021-12-18] MEDS: INSULIN LANTUS (GLARGINE) 1 /0.01ml (100units/ml) SC SCH (10:30)
[2021-12-18] MEDS: ENOXAPARIN SOD 60 MG/0.6 ML SYRINGE SC SCH (10:30)
[2021-12-18] MEDS: PANTOPRAZOLE 40 MG/10 ML VIAL INJ IV SCH (10:30)
[2021-12-18] MEDS: SODIUM CHLOR 0.9% PF (SALINE LOCK) 10ML VIAL/SYR IV SCH ×2 (10:30→22:00)
[2021-12-18] MEDS: LINEZOLID 600MG/300ML 300 ML IV SCH (10:30)
[2021-12-18] MEDS: DOPamine 1600MCG/ML D5W 250 ML IV SCH (11:45)
[2021-12-18 12:31] LABS: Calcium 7.6 mg/dL (8.5-10.1); Magnesium 2.3 mg/dL (1.6-2.6)
[2021-12-18 12:32] LABS: BUN/Creatinine Ratio 25.5; Phosphorus 7.9 mg/dL (2.5-4.90)
[2021-12-18] MEDS: NOREPINEPHRINE 8 MG/250ML KIT 250 ML IV SCH (17:00)
[2021-12-18] MEDS: PROPOFOL 100 ML IV SCH (17:00)
[2021-12-18] MEDS: MICAFUNGIN SODIUM 100 MG in SODIUM CHL 0.9% 100 ML IV SCH (19:43)
[2021-12-18] MEDS ORDERED: TPN PER PHARMACY IV NR ×8 (20:00)
[2021-12-18] MEDS: CEFEPIME 1 GM in SODIUM CHL 0.9% 50 ML IV SCH (21:59)
[2021-12-19] VITALS (88 sets, daily range): BP systolic 88–135; BP diastolic 13–54
[2021-12-19] MEDS: ACCU-CHEK COMFORT CURVE STRIP VI SCH ×4 (01:14→17:40)
[2021-12-19] MEDS: LINEZOLID 600MG/300ML 300 ML IV SCH ×3 (01:25→23:12)
[2021-12-19] MEDS: VASOPRESSIN 50 UNITS in D5W 5% 247.5 ML IV SCH ×2 (01:25→13:00)
[2021-12-19] MEDS: PHENYLEPHRINE INJ 80 MG in SODIUM CHL 0.9% 242 ML IV SCH ×2 (01:27→13:00)
[2021-12-19] MEDS: MIDAZOLAM DRIP 50 mg/50mL 50 ML IV SCH ×2 (03:31→13:00)
[2021-12-19 03:43] LABS: Calcium 6.7 mg/dL (8.5-10.1); Magnesium 2.7 mg/dL (1.6-2.6); Potassium 4.4 mmol/L (3.5-5.1)
[2021-12-19 03:46] LABS: BUN/Creatinine Ratio 25.7; Bilirubin, Total 0.7 mg/dL (0.2-1.0); Phosphorus 8.6 mg/dL (2.5-4.90); Total Protein 4.9 g/dL (6.4-8.2)
[2021-12-19] MEDS: fentaNYL Drip 2500mCg/250mlNS 250 ML IV SCH ×2 (05:19→22:08)
[2021-12-19] MEDS: InsuLIN REG 1unit/0.01ml Soln (100units/ml) SC SCH ×4 (06:00→17:40)
[2021-12-19] MEDS: CALCIUM ACETATE 667 MG CAP PO SCH ×3 (08:00→18:00)
[2021-12-19] MEDS: PROPOFOL 100 ML IV SCH (08:00)
[2021-12-19] MEDS: PANTOPRAZOLE 40 MG/10 ML VIAL INJ IV SCH (09:49)
[2021-12-19] MEDS: ENOXAPARIN SOD 60 MG/0.6 ML SYRINGE SC SCH (09:50)
[2021-12-19] MEDS: SODIUM CHLOR 0.9% PF (SALINE LOCK) 10ML VIAL/SYR IV SCH ×2 (09:50→23:12)
[2021-12-19] MEDS: INSULIN LANTUS (GLARGINE) 1 /0.01ml (100units/ml) SC SCH (09:54)
[2021-12-19] MEDS: BUDESONIDE (INHALATION) 0.5 MG/2 ML NEB NEB SCH ×2 (10:15→18:44)
[2021-12-19] MEDS: NOREPINEPHRINE 8 MG/250ML KIT 250 ML IV SCH (16:37)
[2021-12-19] MEDS: MICAFUNGIN SODIUM 100 MG in SODIUM CHL 0.9% 100 ML IV SCH (17:00)
[2021-12-19] MEDS: CEFEPIME 1 GM in SODIUM CHL 0.9% 50 ML IV SCH (18:00)
[2021-12-19] MEDS: BUMETANIDE 1mg/4ml VIAL (0.25mg/ml) IV SCH (18:00)
[2021-12-19] MEDS: ALBUTEROL SULF 2.5 MG/0.5ML(0.5%) NEB SOLN NEB PRN (18:44)
[2021-12-19] MEDS ORDERED: TPN PER PHARMACY IV NR ×6 (20:00)
[2021-12-20] VITALS (94 sets, daily range): BP systolic 94–154; BP diastolic 12–81
[2021-12-20] MEDS: InsuLIN REG 1unit/0.01ml Soln (100units/ml) SC SCH ×4 (00:06→18:00)
[2021-12-20] MEDS: ACCU-CHEK COMFORT CURVE STRIP VI SCH ×4 (00:07→18:00)
[2021-12-20 05:39] LABS: Calcium 6.8 mg/dL (8.5-10.1); Magnesium 2.8 mg/dL (1.6-2.6); Potassium 5.3 mmol/L (3.5-5.1)
[2021-12-20 05:53] LABS: BUN/Creatinine Ratio 24.5; Bilirubin, Total 0.9 mg/dL (0.2-1.0)
[2021-12-20] MEDS: BUMETANIDE 1mg/4ml VIAL (0.25mg/ml) IV SCH ×2 (06:09→18:00)
[2021-12-20 06:32] LABS: Phosphorus 10.2 mg/dL (2.5-4.90)
[2021-12-20] MEDS: CALCIUM ACETATE 667 MG CAP PO SCH ×3 (08:00→18:00)
[2021-12-20] MEDS: MIDAZOLAM DRIP 50 mg/50mL 50 ML IV SCH ×2 (08:56→21:05)
[2021-12-20] MEDS ORDERED: ALBUMIN 25% 100 ML IV ONE (09:45)
[2021-12-20] MEDS: ALBUTEROL SULF 2.5 MG/0.5ML(0.5%) NEB SOLN NEB PRN ×2 (10:00→22:59)
[2021-12-20] MEDS: BUDESONIDE (INHALATION) 0.5 MG/2 ML NEB NEB SCH ×2 (10:00→22:59)
[2021-12-20] MEDS: INSULIN LANTUS (GLARGINE) 1 /0.01ml (100units/ml) SC SCH (10:00)
[2021-12-20] MEDS: VASOPRESSIN 50 UNITS in D5W 5% 247.5 ML IV SCH (10:59)
[2021-12-20] MEDS: PHENYLEPHRINE INJ 80 MG in SODIUM CHL 0.9% 242 ML IV SCH (11:16)
[2021-12-20] MEDS ORDERED: SODIUM BICARBONATE 8.4% INJ 50ML SYRINGE ONE (11:45)
[2021-12-20] MEDS ORDERED: SODIUM BICARBONATE 8.4 % INJ 50ML VIAL IV ONE (11:45)
[2021-12-20] MEDS: LINEZOLID 600MG/300ML 300 ML IV SCH ×2 (12:10→21:04)
[2021-12-20] MEDS: PANTOPRAZOLE 40 MG/10 ML VIAL INJ IV SCH (12:11)
[2021-12-20] MEDS: SODIUM CHLOR 0.9% PF (SALINE LOCK) 10ML VIAL/SYR IV SCH ×2 (12:12→22:46)
[2021-12-20] MEDS: ENOXAPARIN SOD 60 MG/0.6 ML SYRINGE SC SCH (12:15)
[2021-12-20] MEDS: ERGOCALCIFEROL 50,000 UNIT(1.25MG) CAP PO SCH (16:00)
[2021-12-20] MEDS: PROPOFOL 100 ML IV SCH (17:00)
[2021-12-20] MEDS: NOREPINEPHRINE 8 MG/250ML KIT 250 ML IV SCH (17:00)
[2021-12-20] MEDS ORDERED: SODIUM CHLORIDE IV NR ×6 (20:00)
[2021-12-20] MEDS ORDERED: [UNRECOGNIZED DRUG - OTHER] IV NR ×6 (20:00)
[2021-12-20] MEDS ORDERED: SODIUM ACETATE IV NR ×6 (20:00)
[2021-12-20] MEDS ORDERED: CALCIUM GLUC IV NR ×6 (20:00)
[2021-12-20] MEDS: MICAFUNGIN SODIUM 100 MG in SODIUM CHL 0.9% 100 ML IV SCH (20:00)
[2021-12-20] MEDS: CEFEPIME 1 GM in SODIUM CHL 0.9% 50 ML IV SCH (23:06)
[2021-12-21] VITALS (38 sets, daily range): BP systolic 72–139; BP diastolic 13–33
[2021-12-21] MEDS: ACCU-CHEK COMFORT CURVE STRIP VI SCH ×2 (00:29→06:09)
[2021-12-21 05:11] LABS: Albumin 1.3 g/dL (3.4-5.0); Calcium 6.3 mg/dL (8.5-10.1); Magnesium 2.6 mg/dL (1.6-2.6)
[2021-12-21 05:20] LABS: Bilirubin, Total 1.7 mg/dL (0.2-1.0); Total Protein 4.7 g/dL (6.4-8.2)
[2021-12-21] MEDS: BUDESONIDE (INHALATION) 0.5 MG/2 ML NEB NEB SCH (05:49)
[2021-12-21 05:54] LABS: Potassium 6.3 mmol/L (3.5-5.1)
[2021-12-21 05:55] LABS: BUN/Creatinine Ratio 24.9; Phosphorus 11.3 mg/dL (2.5-4.90)
[2021-12-21] MEDS: InsuLIN REG 1unit/0.01ml Soln (100units/ml) SC SCH ×2 (06:00)
[2021-12-21] MEDS: BUMETANIDE 1mg/4ml VIAL (0.25mg/ml) IV SCH (06:08)
[2021-12-21] MEDS: VASOPRESSIN 50 UNITS in D5W 5% 247.5 ML IV SCH (06:10)
[2021-12-21] MEDS: PHENYLEPHRINE INJ 80 MG in SODIUM CHL 0.9% 242 ML IV SCH (06:12)
[2021-12-21] MEDS ORDERED: ALBUTEROL SULF 2.5 MG/0.5ML(0.5%) NEB SOLN NEB ONE (07:45)
[2021-12-21] MEDS ORDERED: CALCIUM CHL 100MG/ML 1,000 MG in D5W 5% 100 ML IV ONE (07:45)
[2021-12-21] MEDS ORDERED: SODIUM ZIRCONIUM CYCL 10 GM PAK PO ONE (07:45)
[2021-12-21] MEDS: CALCIUM ACETATE 667 MG CAP PO SCH (08:00)
[2021-12-21] MEDS ORDERED: MORPHINE SULFATE INJECTION 2 MG/ML SYRG IV PRN (09:15)
[2021-12-21] MEDS: SODIUM CHLOR 0.9% PF (SALINE LOCK) 10ML VIAL/SYR IV SCH (10:00)
[2021-12-21] MEDS: LINEZOLID 600MG/300ML 300 ML IV SCH (10:00)
[2021-12-21] MEDS: INSULIN LANTUS (GLARGINE) 1 /0.01ml (100units/ml) SC SCH (10:00)
[2021-12-21] MEDS: ENOXAPARIN SOD 60 MG/0.6 ML SYRINGE SC SCH (10:00)
[2021-12-21] MEDS: PANTOPRAZOLE 40 MG/10 ML VIAL INJ IV SCH (10:00)
[2021-12-21] MEDS ORDERED: TPN PER PHARMACY IV NR ×6 (20:00)
== END 2021-12-21 14:35 | DRG 207 ==
LOC: EDBD 16:58 → ER 16:58 → TELE 21:31 → TELE-E-ADS 12-05 23:46 → ICU WEST 12-13 15:31
PROVIDERS: ADMIT Nurse Practitioner; ATTEND Internal Medicine
PROC: XW033E5 Introduction of Remdesivir Anti-infective into Peripheral Vein, Percutaneous Approach, New Technology Group 5 (ICD-10-PCS; 2021-12-04)
PROC: 5A0935A Assistance with Respiratory Ventilation, Less than 24 Consecutive Hours, High Flow/Velocity Cannula (ICD-10-PCS; 2021-12-09)
PROC: 5A0945A Assistance with Respiratory Ventilation, 24-96 Consecutive Hours, High Flow/Velocity Cannula (ICD-10-PCS; principal; 2021-12-10)
PROC: 5A0935A Assistance with Respiratory Ventilation, Less than 24 Consecutive Hours, High Flow/Velocity Cannula (ICD-10-PCS; 2021-12-10)
PROC: 5A1955Z Respiratory Ventilation, Greater than 96 Consecutive Hours (ICD-10-PCS; 2021-12-13)
PROC: 0BH17EZ Insertion of Endotracheal Airway into Trachea, Via Natural or Artificial Opening (ICD-10-PCS; 2021-12-13)
PROC: 06HY33Z Insertion of Infusion Device into Lower Vein, Percutaneous Approach (ICD-10-PCS; 2021-12-18)
PROC: B54BZZA Ultrasonography of Right Lower Extremity Veins, Guidance (ICD-10-PCS; 2021-12-18)
DX: U07.1 COVID-19 (principal); J12.82 Pneumonia due to coronavirus disease 2019; I21.4 Non-ST elevation (NSTEMI) myocardial infarction; E43 Unspecified severe protein-calorie malnutrition; I50.31 Acute diastolic (congestive) heart failure; J96.01 Acute respiratory failure with hypoxia; N17.0 Acute kidney failure with tubular necrosis; A41.89 Other specified sepsis; R65.20 Severe sepsis without septic shock; E87.0 Hyperosmolality and hypernatremia; J98.11 Atelectasis; E87.2 Acidosis; Z99.11 Dependence on respirator [ventilator] status; R57.9 Shock, unspecified; E87.1 Hypo-osmolality and hyponatremia; D64.9 Anemia, unspecified; Z66 Do not resuscitate; E55.9 Vitamin D deficiency, unspecified; N18.9 Chronic kidney disease, unspecified; E87.5 Hyperkalemia; Z85.820 Personal history of malignant melanoma of skin; Z68.20 Body mass index [BMI] 20.0-20.9, adult
CPT/HCPCS: 36415; 36569; 36600; 71045; 80048; 80053; 81001; 82010; 82040; 82306; 82550; 82570; 82728; 82805; 82962; 83036; 83605; 83615; 83735; 83880; 83930; 83935; 84100; 84300; 84443; 84478; 84484; 85007; 85025; 85027; 85379; 85610; 85730; 86141; 87040; 87070; 87077; 87086; 87205; 87426; 93005; 93306; 93970; 94002; 94003; 94640; 94644; 94660; 96365; 96375; 99291; C9113; G0378; J0330; J0696; J1100; J1815; J2248; J2250; J2704; J7060; J7131; P9047